=== PATIENT | female | born 1945 | race African-American/Black ===

== ENCOUNTER 2016-09-25 22:41 | Inpatient (IN) | payer MEDICARE, OTHER ==
--- NOTE | ~2016-09-25 | US84 ---
[id number] [facility] [address] [facility] [address]. [place], [place] [address] [id number] MR#: [id number] Acc #: [id number] NAME: JOSE ANGEL VERDUGO : 1945 SEX: F STUDY DATE/TIME: 09/25/2016 23:19 UNIT: C2A ROOM: 203 STUDY DESCRIPTION: US LE Veins Complete Hector Stdy Attending Physician: Monica Clark M.D. Ordering Physician: Dylon Gutierrez M.D. Primary Care Physician: Primary Care Physician No MEDICAL IMAGING REPORT This report is preliminary unless electronic signature is present EXAM Bilateral lower extremity Doppler venous ultrasound 09/25/2016 HISTORY Bilateral lower extremity pain for 1 day. COMPARISON Bilateral lower extremity Doppler venous ultrasound 07/20/2012. TECHNIQUE Venous ultrasound examination of both lower extremities was performed using grayscale, spectral Doppler and color flow Doppler imaging. FINDINGS The examination is negative. There is no evidence of deep venous thrombus from the groin to the lower calf bilaterally. Visualized greater saphenous veins are also patent. IMPRESSION Negative examination. No evidence of lower extremity deep venous thrombosis. There is somewhat limited evaluation of the calf veins bilaterally due to severe soft tissue edema. Dictated by... Etelvina Scott M.D. THIS IS AN ELECTRONICALLY VERIFIED REPORT Etelvina Scott M.D. at 09/27/2016 10:02 PM SUE/jhonathan TD: 09/26/2016 06:18 JOB #: [id number] MEDICAL IMAGING REPORT Page 1 of 1 COPY
--- NOTE | ~2016-09-25 | CO ---
Unit #: [id number] #: [id number] Patient: JOSE ANGEL VERDUGO [id number] [facility]. [place], [place] [address] [id number] I MR#: [id number] NAME: JOSE ANGEL VERDUGO. ROOM: 203 Age: 71 Sex: F Admission Date: 09/26/2016 : 1945 Attending Physician: Estrellita Vee M.D. Primary Care Physician: Primary Care Physician No Consultation Date: 09/28/2016 CONSULTATION REPORT REASON FOR CONSULTATION Competency eval, dementia. HISTORY OF PRESENT ILLNESS Ms. Jose Angel Verdugo is a 71-year-old female seen in room 203, bed 1 on 09/28/2016 at [facility]. The patient was admitted on 09/26/2016 due to bilateral edema, poor living situation. The patient reported that she was living with her . The patient dressed casually in hospital attire, sitting comfortably in chair. Able to make good eye contact. Able to answer questions appropriately. The patient was alert, oriented in time, place, and person. The patient reported not able to keep up with the time. Reported having problem with memory, but understanding the reason for coming to the hospital and reason for getting treatment. The patient reported that once she is discharged from here, she will be living with her daughter. The patient currently denied any suicidal or homicidal ideation. Denied any psychotic symptom. The patient did not show any agitation. Currently the patient has a poor living situation. The patient reported that previously he was living with her daughter, then after that in the motel and will go back after this to live with her daughter. The patient's past psychiatric history is unremarkable for any history of depression, anxiety, or any suicide attempt or any inpatient treatment. MEDICAL HISTORY Remarkable for history of essential hypertension, hypothyroidism, gout, chronic pedal edema, asthma, history of iron-deficiency anemia, neuropathy, hysterectomy, ORIF, left leg fracture. MEDICATION HISTORY The patient is on aspirin, Norvasc, Synthroid, Bumex, Dulcolax, and Coreg. FAMILY/SOCIAL HISTORY The patient has a good support from her family. No history of abuse. No history of any substance abuse. REVIEW OF SYSTEMS Complete review of systems is remarkable for the patient complaining of swelling in her legs, no other complaints. MENTAL STATUS EXAMINATION Vital Signs: 98.6, 84, 18, 139/60. Oxygen saturation 98%. General Appearance: The patient dressed in hospital attire, sitting comfortably in chair. Attention span, concentration: Fair. Speech regular rate, Unit #: [id number] #: [id number] Patient: JOSE ANGEL VERDUGO coherent. Oriented in place and person but not in time. Mood and affect: Labile. Thought process: Coherent to circumstantial. Thought content: Guarded, but denied any suicidal or homicidal ideation. Denied any auditory or visual hallucination. Recent and remote memory: Fair. Language: Intact. Fund of knowledge: Fair. Insight and judgment: Fair to slightly impaired. 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 SECONDARY: Deferred. MEDICAL: Please refer to H and P. STRESSORS: Psychosocial stressor. ASSESSMENT/PLAN 1. Supportive psychotherapy, psychoeducation provided to the patient. 2. Educated about benefits and side effects of medication and course and prognosis of illness. 3. Based on the current examination, the patient does have symptoms suggestive of dementia, but at this time the patient is able to make informed medical decision. Please feel free to call if any question, telephone #[phone]. Dictated by... Dixon Delgado M.D. SOURAV/humza TD: 09/29/2016 08:19 JOB #: [id number] CONSULTATION REPORT Page 1 of 1 X Dixon Delgado MD X CONSULTATION REPORT
--- NOTE | ~2016-09-25 | CO ---
Unit #: [id number] #: [id number] Patient: JOSE ANGEL VERDUGO [id number] [facility] [address] [facility]. [place], [place] [address] [id number] I MR#: [id number] NAME: JOSE ANGEL VERDUGO. ROOM: 203 Age: 71 Sex: F Admission Date: 09/26/2016 : 1945 Attending Physician: Estrellita Vee M.D. Primary Care Physician: Primary Care Physician No Consultation Date: 09/29/2016 CONSULTATION REPORT REASON FOR CONSULTATION Followup. DISCUSSION Ms. Jose Angel Verdugo is a 71-year-old female, seen in room 203, bed 1 on 09/29/2016 at [facility]. The patient was lying comfortably, dressed casually. The patient was able to answer question appropriately, still having problem with memory but able to answer questions appropriately. Vital signs; temperature 98.1, pulse 68, respiratory rate 16, blood pressure 150/67, oxygen saturation 97%. The patient reports that she will be going back to live with her daughter after discharge. The patient denied any current suicidal or homicidal ideation. Denied any psychotic symptom. No agitation. REVIEW OF SYSTEMS Complete review of systems is unremarkable. MENTAL STATUS EXAMINATION Vital signs, please see above. General appearance, the patient dressed casually dressed in hospital attire. Attention span and concentration, fair. Speech, regular rate and coherent. Oriented in place and person. Mood and affect were labile. Thought process, circumstantial. Thought content, somewhat guarded, but denied any thoughts of harming self or others. Recent and remote memory, fair to poor. Language, intact. Fund of knowledge, fair. Insight and judgment, fair to slightly impaired. 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 ASSESSMENT/PLAN 1. Supportive psychotherapy and psychoeducation provided to the patient. 2. No medication at this time. 3. We will continue to monitor. If needed, consider medication. Please feel free to call if any questions, telephone #[phone]. Dictated by... Dixon Delgado M.D. SOURAV/claudy TD: 09/29/2016 23:33 JOB #: [id number] Unit #: [id number] #: [id number] Patient: JOSE ANGEL VERDUGO CONSULTATION REPORT Page 1 of 1 X Dixon Delgado MD CONSULTATION REPORT
--- NOTE | ~2016-09-25 | BMI ---
[facility] Nutrition Therapy DATE: 09/26/16 Patient: JOSE ANGEL VERDUGO Physician: ZULMA Address: [address] Room/Bed: [address] [place] [address], Zip: [place] [address] Admit Date: 09/26/16 Date of : [birth year] Height: 5 2 Weight: 240 108.86 HIGH BMI NOTE: DX: 71 Y.O. FEMALE ADMITTED FOR LED EDEMA CELLULITIS ANTHROPOMETRICS: 5'2", WT: 239# (109 KG), BMI: 43.7 DIET: CLEAR LIQUID INTERVENTION: 1. CLEAR LIQUID DIET RECOMMENDATIONS: 1. ONCE MEDICALLY FEASIBLE, ADVANCE DIET INDICATED TO CC+HH TO PROMOTE GRADUAL WEIGHT LOSS TOWARDS HEALTHY BMI (19.0-25.0) OR +/-10%IBW RD WILL F/U PER PROTOCOL Respectfully, RUSTAM MCKEON MS, RD, LD [facility] cc: client file
--- NOTE | ~2016-09-25 | DS ---
Unit #: [id number] #: [id number] Patient: JOSE ANGEL VERDUGO [id number] [place], [place] [address] [id number] MR#: [id number] NAME: JOSE ANGEL VERDUGO. ROOM: 203 Age: 71 Sex: F Admission Date: 09/26/2016 : 1945 Discharge Date: 09/30/2016 Attending Physician: Estrellita Vee M.D. Primary Care Physician: No Primary Care Physician DISCHARGE SUMMARY ADDENDUM HOSPITAL COURSE The patient remained in the hospital because patient's daughter did not feel she could care for her at this time. Another attempt at bowel prep was done in anticipation of EGD and colonoscopy. The patient continued to not take it and thus the procedures have been abandoned. Hemoglobin did drop to as low as 7.3 and I did transfuse her one unit of packed red blood cells. Since that time hemoglobin has been trending up and is now 8.7. She will continue on iron therapy as an outpatient. At this time, the plan is for patient to discharge to rehab and then transition to long-term care. DISCHARGE CONDITION Stable. DISCHARGE STATUS Discharge to rehab. DISCHARGE MEDICATIONS 1. Tylenol 650 mg p.o. q.4 hours p.r.n. for pain. 2. Neurontin 100 mg at bedtime. 3. Bactroban ointment topically two lower extremities b.i.d. 4. Lamisil 250 mg p.o. daily for six weeks. 5. Coreg 12.5 mg b.i.d. 6. Cephalexin 500 mg p.o. b.i.d. to stop after dose on 10/01/2016. 7. Bumex 1 mg daily. 8. Hydralazine 25 mg t.i.d. 9. Ferrous gluconate 324 mg twice daily. 10. Aspirin 81 mg daily. 11. Levothyroxine 125 mcg p.o. daily. 12. Vitamin B12 1,000 mcg p.o. daily. 13. Mineral oil betamethasone 0.05% cream as a mix topically b.i.d. to lower extremities. 14. Patient also uses AmLactin b.i.d. DISCHARGE INSTRUCTIONS Patient was instructed to follow a heart healthy diet. She can increase her activity as tolerated and again will need wrapping to lower extremities at least b.i.d. if simply dane wrappings, otherwise Unna boots would be appropriate. Unit #: [id number] #: [id number] Patient: JOSE ANGEL VERDUGO FOLLOWUP Patient will followup per medical doctor facility. She needs followup TSH in six weeks. Dictated by... Estrellita Vee M.D. SMITHA/amy TD: 09/30/2016 13:02 JOB #: [id number] DISCHARGE SUMMARY Page 1 of 1 X Estrellita Vee MD X DISCHARGE SUMMARY
--- NOTE | ~2016-09-25 | CR63 ---
[facility] A Service of [facility] RADIOLOGY TEXT RESULTS PATIENT: JOSE ANGEL VERDUGO LOCATION: [facility] : [birth year] UNIT #: [id number] AGE: [address]: Estrellita Vee MD SEX: F ORDER DR: [id number] [facility] [address] [facility]. [place], [place] [address] [id number] I MR#: [id number] Acc #: [id number] NAME: JOSE ANGEL VERDUGO : 1945 SEX: F STUDY DATE/TIME: 09/26/2016 18:05 UNIT: [facility] ROOM: [facility] STUDY DESCRIPTION: CR Chest 2 View Attending Physician: Estrellita Vee M.D. Ordering Physician: Estrellita Vee M.D. Primary Care Physician: Primary Care Physician No MEDICAL IMAGING REPORT This report is preliminary unless electronic signature is present EXAM PA and lateral chest HISTORY Chest pain and shortness of air since yesterday. FINDINGS 2 views of the chest demonstrate moderate elevation of the right hemidiaphragm. Low lung volumes. Cardiac and mediastinal contours are normal. Mild mid-thoracic kyphosis. Old bilateral rib fractures. IMPRESSION No acute findings. No active disease. Dictated by... John Krishna M.D. THIS IS AN ELECTRONICALLY VERIFIED REPORT John Krishna M.D. at 09/27/2016 2:43 PM DFL/psc TD: 09/26/2016 22:10 JOB #: [id number] MEDICAL IMAGING REPORT Page 1 of 1 COPY
--- NOTE | ~2016-09-25 | EKG ---
PATIENT: JOSE ANGEL VERDUGO UNIT #: [id number] Ventricular Rate: 78 BPM Atrial Rate: 78 BPM P-R Interval: 160 ms QRS Duration: 82 ms Q-T Interval: 396 ms QTC Calculation(Bezet): 451 ms P Vinson: 10 degrees Calculated R Vinson: -6 degrees Calculated T Vinson: 55 degrees Diagnosis Line: Normal sinus rhythm Diagnosis Line: Minimal voltage criteria for LVH, may be normal Diagnosis Line: variant Diagnosis Line: Borderline ECG Diagnosis Line: When compared with ECG of 10-SEP-2013 13:19, Diagnosis Line: RI interval has decreased Diagnosis Line: Confirmed by SCAR GUERRERO MD ([id number]) on Diagnosis Line: 09/27/2016 4:31:52 PM INTERPRETING MD: CESAR ALMANZAR
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
--- NOTE | ~2016-09-25 | HP ---
Unit #: [id number] #: [id number] Patient: JOSE ANGEL VERDUGO [id number] [place], [place] [address] [id number] I MR#: [id number] NAME: JOSE ANGEL VERDGUO. ROOM: 203 Age: 71 Sex: F Admission Date: 09/26/2016 : 1945 Attending Physician: Monica Clark M.D. Primary Care Physician: No Primary Care Physician HISTORY AND PHYSICAL CHIEF COMPLAINT Bilateral leg edema with pain, microcytic anemia, poor living situation, bedbugs. HISTORY This 71-year-old female with hypertension, hypothyroidism, asthma, is admitted for increasing leg swelling and pain. The patient has chronic lower extremity pedal edema. States that two days ago she developed increasing pain and swelling of both legs, left greater than right. Has been feeling chilled and feverish. She presents to this emergency department where on examination she has evidence of chronic venous stasis dermatitis but there may be superimposed cellulitis as well. Labs are notable for worsening microcytic anemia, patient is heme negative from below. She does have a history of iron deficiency anemia and underwent endoscopy by Dr. Nvaarrete 2007 revealing AVMs and polyps in the colon which were snared. Denies change in her usual bowel habits, melena or hematochezia. In the ER, she was given Tylenol. Was noted to have bedbugs and was decontaminated. She has a poor living situation. Was previously living with her daughter and now is living in a motel for the past one to two months. Prior to her move to a motel, was receiving home physical therapy along with visiting nurse visits and leg wraps. PAST MEDICAL HISTORY 1. Essential hypertension. 2. Hypothyroidism. 3. Gout. 4. Chronic pedal edema. 5. Asthma. 6. History of iron deficiency anemia with EGD and colonoscopy performed 02/[address] Navarrete. AVMs were noted, polyps were removed. 7. Neuropathy. 8. Hysterectomy. 9. ORIF left leg fracture. ALLERGIES [place] juice. HOME MEDICATIONS 1. Patient ran out of her Neurontin. 2. Aspirin 81 mg daily. 3. Norvasc 10 mg daily. 4. Synthroid 0.1375 mg daily. 5. Bumex 2 mg in the morning, 1 mg in the evening although it appears Unit #: [id number] #: [id number] Patient: JOSE ANGEL VERDUGO patient has not been taking this medicine as prescribed 6. Dulcolax p.r.n. 7. Coreg 12.5 mg b.i.d. FAMILY HISTORY Hypertension, lung cancer. SOCIAL HISTORY The patient is and her , I believe, is living in a homeless alf. She is renting a room in a motel. Moved out of her daughter's home one or two months ago. Is a lifelong nonsmoker, does not drink alcohol. REVIEW OF SYSTEMS Notable for increasing leg pain, swelling and erythema, feeling feverish and chilled, hypertension, hypothyroidism, gout, chronic pedal edema, asthma, anemia, above mentioned surgeries. All other systems were reviewed and are otherwise negative. PHYSICAL EXAMINATION GENERAL APPEARANCE: 71-year-old, pleasant female, currently in no acute distress. She does appear to be pale on exam. VITAL SIGNS: Temperature 98.8, pulse 86, respirations 16, blood pressure 147/77. O2 saturation is 99% on room air. HEENT: Eyes PERRLA. Disconjugate gaze noted. Pharynx is benign, edentulous. NECK: Supple without adenopathy or thyromegaly. CHEST: Clear. CARDIAC: Normal S1 and S2. Soft systolic murmur best heard at the right upper sternal border. ABDOMEN: Bowel sounds are present. No hepatosplenomegaly or tenderness. Patient does have a large ventral hernia which is reducible. EXTREMITIES: With chronic appearing venous stasis changes and pedal edema. However, patient also has bilateral lower extremity distal erythema and tenderness. Pedal pulses are difficult to palpate due to edema. No ulcers on the feet. NEUROLOGIC EXAM: Patient is awake, alert. She is oriented. Her cranial nerves reveal a disconjugate gaze which is old. She has equal strength throughout but is weak on exam. Patient has multiple excoriations. Of note - I did do a rectal examination. No stool in the rectal vault. Heme negative. DIAGNOSTIC STUDIES LABORATORY: Admission labs - hematocrit is 25, down from a hematocrit of 33 three years ago. MCV is 68, white blood count is 11.7, normal platelet count. Cardiac markers negative. SMA-12 - sodium 134, potassium 3.3, protein 9.7, albumin is 3.4. Normal BNP. IMAGING: Venous Dopplers of the lower extremities are negative for DVTs although is a limited study. CARDIOVASCULAR: EKG - normal sinus rhythm, rate 78, nonspecific ST wave flattening. Unit #: [id number] #: [id number] Patient: JOSE ANGEL VERDUGO ASSESSMENT 1. Bilateral leg edema, likely related to chronic venous stasis dermatitis and chronic pedal edema: May have superimposed cellulitis. 2. Microcytic anemia: Patient is heme negative, does have a history of iron deficiency anemia. Underwent a colonoscopy nine years ago and polyps removed by Dr. Navarrete. 3. Bedbugs: Patient was decontaminated in the emergency room. 4. Hypothyroidism. 5. Poor living situation, patient is currently living in a motel. 6. Essential hypertension. 7. Asthma. 8. History of gout. PLANS 1. Change Norvasc to hydralazine given leg edema. Will treat with Ancef IV for now pending further workup. Will have daily Bumex and ask the wound nurse to see in the morning for leg wraps. 2. Anemia workup and ask GI to see in consultation. 3. Obtain TSH. 4. DVT prophylaxis. 5. Social work and physical therapy to see. Dictated by Monica Clark M.D. AML/df TD: 09/26/2016 05:56 JOB #: [id number] CC: Carey Almazan M.D. HISTORY AND PHYSICAL Page 1 of 1 X Monica Clark MD X HISTORY AND PHYSICAL
--- NOTE | ~2016-09-25 | CO ---
Unit #: [id number] #: [id number] Patient: JOSE ANGEL VERDUGO [id number] [address] [place], [place] [address] [id number] MR#: [id number] NAME: JOSE ANGEL VERDUGO ROOM: 203 Age: 71 Sex: F Admission Date: 09/26/2016 : 1945 Attending Physician: Estrellita Vee M.D. Consultation Date: 09/26/2016 CONSULTATION REPORT HISTORY OF PRESENT ILLNESS Ms. Verdugo is a 71-year-old black female, diabetic with longstanding stasis lymphedema of both lower legs with right leg stasis ulceration secondary to blistering. She is also noted to have significant microcytic anemia with a hemoglobin of 7.7. She has had some scopes done, but they have been over 8 to 9 years ago. She does have 2+ palpable pulses. The patient is alert and awake. Evidently, she has some hygiene issues and some poor living conditions. The patient also was noted to have significant onychomycosis. She was in the emergency room and was noted to have heme-negative stools. At this time, we would recommend local leg care with cleansing legs, treating the ulcers, and wrapping the legs. Perhaps, she could use Unna boots if her compensated fluid overload issue is controlled slightly. She is on diuretics. The patient also probably should have both upper and lower endoscopy due to microcytic anemia. We will try to prep the patient and plan to do that on 09/27/2016. Dictated by... Ramona Cartagena/claudy TD: 09/26/2016 07:11 JOB #: [id number] CC: Agatha/invision Please Delete CONSULTATION REPORT Page 1 of 1 X Kenyon Guzman MD X CONSULTATION REPORT
--- NOTE | ~2016-09-25 | CR72 ---
[facility] A Service of [facility] RADIOLOGY TEXT RESULTS PATIENT: JOSE ANGEL VERDUGO LOCATION: [facility] : 45 UNIT #: [id number] AGE: [address]: Estrellita Vee MD SEX: F ORDER DR: [id number] [facility] [address] [facility]. [place], [place] [address] [id number] MR#: [id number] Acc #: [id number] NAME: JOSE ANGEL VERDUGO. : 1945 SEX: F STUDY DATE/TIME: 09/26/2016 0:00 UNIT: [facility] ROOM: [facility] STUDY DESCRIPTION: CR Chest Single View Portable Attending Physician: Monica Clark M.D. Ordering Physician: Dylon Gutierrez M.D. Primary Care Physician: Primary Care Physician No MEDICAL IMAGING REPORT This report is preliminary unless electronic signature is present EXAM AP portable chest date 09/26/2016 HISTORY Shortness breath, weakness and lower extremity soft tissue swelling today. Hypertension. Diabetes. COMPARISON AP portable chest 11/03/2014. FINDINGS Low volume inspiration. Stable asymmetric elevation of hemidiaphragm. Lungs appear clear. Heart size is stable and within normal limits. No pleural effusion or pneumothorax is identified. No acute osseous abnormalities are seen. There is lower thoracic dextroscoliosis, upper lumbar levoscoliosis. IMPRESSION 1. No acute chest findings. 2. Stable elevation right hemidiaphragm. 3. Thoracolumbar scoliosis. Dictated by... Etelvina Scott M.D. THIS IS AN ELECTRONICALLY VERIFIED REPORT Etelvina Scott M.D. at 09/27/2016 10:01 PM SUE/omdi TD: 09/26/2016 06:31 JOB #: [id number] MEDICAL IMAGING REPORT [facility] A Service of [facility] RADIOLOGY TEXT RESULTS PATIENT: JOSE ANGEL VERDUGO LOCATION: [facility] : 45 UNIT #: [id number] AGE: [address]: Estrellita Vee MD SEX: F ORDER DR: Page 1 of 1 COPY
[~2016-09-25 22:41] MED LIST: ACETAMINOPHEN PO; ADVAIR 250-501 EACH IH; ADVAIR 2501 DISK W/D PO; ALB/IPRATROPIUM/1 E1 INH; AMBIEN PO; ATENOLOL25 MG PO; CLARITIN10 MG PO; CLOTRIMAZOLE; COLCRYS0.6 MG PO; DOCU SOFT100 M1 PO; FERRO-TIME325 MG PO; FUROSEMIDE40 MG PO; HYDRALAZINE HCL25 MG PO; HYDROCHLOROTH12.5 MG PO; HYZAAR 100-12.51 TAB PO; ISORDIL PO; KCL PO; KLOR-CON PO; LASIX PO; LISINOPRIL PO; LORTAB 5/500 TA1 TA1 PO; LOTRIMIN30 GM TOP; LOZOL PO; LOZOL2.5 M1 PO; MOBIC15 MG PO; NORCO 5/325 TAB1 TAB PO; NORVASC PO; OMEPRAZOLE MAGN20 MG PO; PREDNISONE PO; PRILOSEC PO; SENNA-LAX8.6 M1 PO; SYNTHROID PO; TENORMIN25 MG PO; TRAMADOL HCL50 M1 PO; VICODIN 5/1 TAB 5/50 PO; ZOLPIDEM TARTRA10 M1 PO; ZYLOPRIM PO
[2016-09-25 23:17] LABS: BASOPHIL# 0.1 X10e3 (0-0.3); BASOPHIL% 0.4 % (0-2.5); DIFF IND YES; EOSINOPHIL# 2.4 X10e3 (0-0.7); EOSINOPHIL% 20.9 % (0.0-7.0); HEMATOCRIT 24.9 % (35.0-45.0); HEMOGLOBIN 7.7 gm/dL (12.0-16.0); LYMPHOCYTE# 1.5 X10e3 (1.0-3.5); LYMPHOCYTE% 12.7 % (17.0-45.0); MEAN CORPUSCULAR HEMOGLOBIN 21.1 PG (28-34); MEAN CORPUSCULAR HGB CONC 31.1 g/dL (30-36); MEAN PLATELET VOLUME 7.6 FL (6.5-11.5); MONOCYTE# 0.5 X10e3 (0-1.0); MONOCYTE% 4.4 % (3.0-12.0); NEUTROPHIL# 7.2 X10e3 (1.5-7.1); NEUTROPHIL% 61.6 % (40-75); PLATELET COUNT 328 X10e3 (140-420); RED BLOOD COUNT 3.66 X10e (3.90-5.30); RED CELL DISTRIBUTION WIDTH 19.1 % (11.0-15.5); WHITE BLOOD COUNT 11.7 X10e3 (4.0-10.5)
[2016-09-25 23:37] LABS: ALBUMIN SERUM 3.4 g/dL (3.5-5.0); BILIRUBIN, DIRECT 0.1 mg/dL (0.0-0.2); BILIRUBIN,INDIRECT 0.5 mg/dL (0.0-0.9); BILIRUBIN,TOTAL 0.6 mg/dL (0.2-2.0); CALCIUM SERUM 9.2 mg/dL (8.4-10.2); CREATININE SERUM 1.4 mg/dL (0.6-1.4); GLOM FILT RATE Estimated 43.7 mL/min (>60); POTASSIUM 3.3 mmol/L (3.5-5.1); PROTEIN TOTAL SERUM 9.7 g/dL (6.0-8.3)
[2016-09-25 23:56] LABS: HYPOCHROMIA MOD; PLATELET ESTIMATE NORMAL (NORMAL)
[2016-09-26 00:33] LABS: POC - CKMB 1.7 ng/mL (0.0-7.9); POC - TROPONIN <0.05 ng/mL (<=0.05)
[2016-09-26 02:43] LABS: URINE SOURCE CLEAN CATCH
[2016-09-26 02:46] LABS: URINE APPEARANCE CLEAR; URINE BILIRUBIN NEG (NEG); URINE BLOOD NEG (NEG); URINE COLOR YELLOW; URINE GLUCOSE NEG (NEG); URINE KETONE NEG (NEG); URINE LEUKOCYTE ESTERASE 2+ (NEG); URINE NITRATE NEG (NEG); URINE PROTEIN NEG (NEG); URINE SPECIFIC GRAVITY 1.008 (1.003-1.035); URINE UROBILINOGEN 0.2 MG/DL (NEG)
[2016-09-26 02:49] LABS: CULTURE INDICATED? YES; URBCS1 AUWI 0-2 /[HPF] (0-2); URINE BACTERIA AUWI NEG (NEGATIVE); URINE SQUAMOUS EPITHELIAL CELL FEW /[HPF]
[2016-09-26] MEDS ORDERED: LEVOXYL0.137 MG DOB (03:47)
[2016-09-26] MEDS ORDERED: BUMEX1 MG PO (03:49)
[2016-09-26] MEDS ORDERED: AMLODIPINE BESY10 MG PO (03:49)
[2016-09-26] MEDS ORDERED: COREG12.5 MG PO (03:50)
[2016-09-26] MEDS ORDERED: NEURONTIN300 MG PO (03:51)
[2016-09-26] MEDS ORDERED: ASPIRIN81 M2 PO (03:52)
[2016-09-26 10:11] LABS: BASOPHIL# 0.1 X10e3 (0-0.3); BASOPHIL% 0.7 % (0-2.5); EOSINOPHIL# 2.1 X10e3 (0-0.7); EOSINOPHIL% 17.3 % (0.0-7.0); HEMATOCRIT 22.9 % (35.0-45.0); HEMOGLOBIN 7.2 gm/dL (12.0-16.0); LYMPHOCYTE# 1.4 X10e3 (1.0-3.5); LYMPHOCYTE% 11.4 % (17.0-45.0); MEAN CELL VOLUME 67.4 FL (83-96); MEAN CORPUSCULAR HEMOGLOBIN 21.2 PG (28-34); MEAN CORPUSCULAR HGB CONC 31.4 g/dL (30-36); MEAN PLATELET VOLUME 7.3 FL (6.5-11.5); MONOCYTE# 0.6 X10e3 (0-1.0); NEUTROPHIL# 7.9 X10e3 (1.5-7.1); NEUTROPHIL% 65.6 % (40-75); PLATELET COUNT 309 X10e3 (140-420); RED CELL DISTRIBUTION WIDTH 18.8 % (11.0-15.5); RETICULOCYTE 1.2 % (0.5-2.8); WHITE BLOOD COUNT 12.1 X10e3 (4.0-10.5)
[2016-09-26 10:19] LABS: DIFF IND NO
[2016-09-26 13:55] LABS: FREE T3 3.2 pg/mL (2.5-3.9)
[2016-09-26 13:56] LABS: FREE THYROXIN (T4) 1.99 ng/dL (0.58-1.64)
[2016-09-27 05:38] LABS: HEMATOCRIT 23.9 % (35.0-45.0); HEMOGLOBIN 7.6 gm/dL (12.0-16.0); MEAN CORPUSCULAR HEMOGLOBIN 22.3 PG (28-34); MEAN CORPUSCULAR HGB CONC 31.7 g/dL (30-36); MEAN PLATELET VOLUME 7.6 FL (6.5-11.5); RED BLOOD COUNT 3.39 X10e (3.90-5.30); RED CELL DISTRIBUTION WIDTH 20.5 % (11.0-15.5); WHITE BLOOD COUNT 9.9 X10e3 (4.0-10.5)
[2016-09-27 05:39] LABS: MEAN CELL VOLUME 70.4 FL (83-96)
[2016-09-27 06:48] LABS: BUN/CREATININE RATIO 13.33; CALCIUM SERUM 8.6 mg/dL (8.4-10.2); CREATININE SERUM 1.2 mg/dL (0.6-1.4); GLOM FILT RATE Estimated 52.7 mL/min (>60); POTASSIUM 3.6 mmol/L (3.5-5.1)
[2016-09-28 05:27] LABS: HEMOGLOBIN 7.3 gm/dL (12.0-16.0); MEAN CELL VOLUME 69.7 FL (83-96); MEAN CORPUSCULAR HGB CONC 31.6 g/dL (30-36); MEAN PLATELET VOLUME 7.4 FL (6.5-11.5); RED BLOOD COUNT 3.29 X10e (3.90-5.30); RED CELL DISTRIBUTION WIDTH 20.2 % (11.0-15.5); WHITE BLOOD COUNT 9.6 X10e3 (4.0-10.5)
[2016-09-28 06:17] LABS: BUN/CREATININE RATIO 12.5; CALCIUM SERUM 8.4 mg/dL (8.4-10.2); CREATININE SERUM 1.2 mg/dL (0.6-1.4); GLOM FILT RATE Estimated 52.7 mL/min (>60); MAGNESIUM 1.6 mg/dL (1.6-3.0); POTASSIUM 3.7 mmol/L (3.5-5.1)
[2016-09-29 07:21] LABS: HEMATOCRIT 27.2 % (35.0-45.0); HEMOGLOBIN 8.5 gm/dL (12.0-16.0); MEAN CELL VOLUME 71.4 FL (83-96); MEAN CORPUSCULAR HEMOGLOBIN 22.3 PG (28-34); MEAN CORPUSCULAR HGB CONC 31.3 g/dL (30-36); MEAN PLATELET VOLUME 7.1 FL (6.5-11.5); RED BLOOD COUNT 3.81 X10e (3.90-5.30); RED CELL DISTRIBUTION WIDTH 20.6 % (11.0-15.5); WHITE BLOOD COUNT 9.4 X10e3 (4.0-10.5)
[2016-09-30 05:49] LABS: HEMATOCRIT 27.4 % (35.0-45.0); HEMOGLOBIN 8.7 gm/dL (12.0-16.0); MEAN CELL VOLUME 71.4 FL (83-96); MEAN CORPUSCULAR HEMOGLOBIN 22.6 PG (28-34); MEAN CORPUSCULAR HGB CONC 31.6 g/dL (30-36); MEAN PLATELET VOLUME 7.5 FL (6.5-11.5); RED BLOOD COUNT 3.84 X10e (3.90-5.30); WHITE BLOOD COUNT 9.4 X10e3 (4.0-10.5)
[2016-09-30 06:58] LABS: CREATININE SERUM 1.2 mg/dL (0.6-1.4); GLOM FILT RATE Estimated 52.7 mL/min (>60); POTASSIUM 4.4 mmol/L (3.5-5.1)
== END 2016-09-30 14:53 | DRG 603 ==
LOC: CED 22:41 → CEDOF 09-26 02:45 → C2A 09-26 05:08
PROVIDERS: Emergency Medicine; Internal Medicine
PROC: B246YZZ Ultrasonography of Right and Left Heart using Other Contrast (ICD-10-PCS; principal; 2016-09-26)
PROC: 02HV33Z Insertion of Infusion Device into Superior Vena Cava, Percutaneous Approach (ICD-10-PCS; 2016-09-28)
PROC: B548ZZA Ultrasonography of Superior Vena Cava, Guidance (ICD-10-PCS; 2016-09-28)
DX: L03.116 Cellulitis of left lower limb (principal); G30.9 Alzheimer's disease, unspecified; Z68.41 Body mass index [BMI] 40.0-44.9, adult; E44.1 Mild protein-calorie malnutrition; N18.3 Chronic kidney disease, stage 3 (moderate); B35.1 Tinea unguium; I12.9 Hypertensive chronic kidney disease with stage 1 through stage 4 chronic kidney disease, or unspecified chronic kidney disease; F02.80 Dementia in other diseases classified elsewhere, unspecified severity, without behavioral disturbance, psychotic disturbance, mood disturbance, and anxiety; L03.115 Cellulitis of right lower limb; D50.9 Iron deficiency anemia, unspecified; E03.9 Hypothyroidism, unspecified; E66.01 Morbid (severe) obesity due to excess calories; I89.0 Lymphedema, not elsewhere classified; E53.8 Deficiency of other specified B group vitamins; I35.0 Nonrheumatic aortic (valve) stenosis; I83.019 Varicose veins of right lower extremity with ulcer of unspecified site; Z79.82 Long term (current) use of aspirin; Z80.1 Family history of malignant neoplasm of trachea, bronchus and lung; Z86.010 Personal history of colon polyps; J45.909 Unspecified asthma, uncomplicated; M10.9 Gout, unspecified; E05.80 Other thyrotoxicosis without thyrotoxic crisis or storm; T38.1X5A Adverse effect of thyroid hormones and substitutes, initial encounter
CPT/HCPCS: 36415; 71010; 71020; 80048; 80076; 81003; 82553; 82607; 82728; 82746; 82947; 83540; 83550; 83735; 83880; 84439; 84443; 84481; 84484; 85025; 85027; 85044; 85730; 86850; 86900; 86901; 86922; 86923; 87040; 87086; 93005; 93306; 93970; 94640; 94760; 97110; 97116; 97162; 97167; 97530; 97532; 97535; 99285; G8978-GP; G8979-GP; G8980-GP; G8987-GO; G8988-GO; J0690; J1650; J2765; J2916; J3420; P9016